=== PATIENT | female | born 1995 | race Caucasian/White ===

== ENCOUNTER 2018-07-21 09:19 | Inpatient (IN) ==
[2018-07-21] MEDS ORDERED: OXYTOCIN 30 UNITS/500 ML BAG IV PRN ×2 (10:10→23:33)
[2018-07-21] MEDS ORDERED: LACTATED RINGER'S 1,000 ML IV PRN (10:10)
[2018-07-21] MEDS ORDERED: LACTATED RINGER'S 1,000 ML IV SCH (10:15)
--- NOTE | 2018-07-21 10:20 | History & Physical Report ---
Date of Service July 21, 2018 Assessment & Plan (1) 40 weeks gestation of : 22yo @ 40 06/24 in spontaneous labor Discussed that her ctx have spaced somewhat since she left home to be evaluated , but due to cervical dilation of 5cm and change since her exam in office, will admit for labor. At this time, she would like to allow her labor to progress naturally, but is agreeable to using pitocin to augment contraction pattern if she does not make cervical cell changer the next few hours. Will plan to recheck cervix to reevaluate for this need. Does not think she would like an epidural at this time, but would like to keep her options open. Will let us know. History of Present Illness Chief Complaint: contractions Primary Care Provider: NO PCP 22yo @ 40 06/24 presents with regular ctx, every 3-4 minutes at home. These have worsened overnight. Last week, cervix exam was 150/-2 in office. No leaking fluid, no vaginal bleeding. + movement. uncomplicated. Review of Systems All systems reviewed & are unremarkable except as noted in HPI & below Physical Exam 2 Vital Signs (Past 24 Hours): Last Vital Signs Pulse 82 07/21/18 09:29 BP 123/72 07/21/18 09:29 Physical Exam: Gen: AAOx3 NAD CV: [id number] L: CTAB Abd: soft, gravid, NTTP Ext: no edema, no calf tenderness SVE: 5/90/-2, bulging membranes FHT Cat 1 [place] Q6 min
[2018-07-21 10:34] LABS: Hematocrit (blood only) 38.4 % (37-47); Hemoglobin 13.1 g/dL (12.0-16.0); Mean Corpuscular Volume 90.6 fL (80-100); Mean Platelet Volume 11.2 fL (7.4-10.4); Platelet Count 200 K/uL (130-400); RDW Coefficient of Variation 12.8 % (11.5-14.5); RDW Standard Deviation 41.8 fL (36.4-46.3); Red Blood Count 4.24 M/uL (4.2-5.4); White Blood Count 13.78 K/uL (4.8-10.8)
[2018-07-21 10:38] LABS: Mean Corpuscular Hgb Conc 34.1 g/dL (32-36)
--- NOTE | 2018-07-21 12:57 | Obstetrical Progress Note ---
Date of Service July 21, 2018 Subjective Ambulating in halls, contractions every 4 minutes. Increased pressure with ctx. FHT Cat 1, reactive. [place] Q6 SVE 6-7/100/-1 Patient desires to attempt to labor naturally, she has made change since last exam, will continue current plan. Does not desire epidural at this time. Physical Exam 2 Vital Signs (Past 24 Hours): Last Vital Signs Temp 36.8 C 07/21/18 10:11 Pulse 72 07/21/18 12:49 Resp 20 07/21/18 10:11 BP 122/76 07/21/18 12:49
--- NOTE | 2018-07-21 16:08 | Obstetrical Progress Note ---
Date of Service July 21, 2018 Subjective Feels continued ctx. FHT Cat 1 [place] Q 3-6 min. SVE 7-8/100/-1 bulging membranes Pt would like to shower and then continue ambulating. Does not desire epidural at this time. Physical Exam 2 Vital Signs (Past 24 Hours): Last Vital Signs Temp 36.8 C 07/21/18 12:49 Pulse 74 07/21/18 16:04 Resp 20 07/21/18 12:49 BP 128/74 07/21/18 16:04
--- NOTE | 2018-07-21 19:49 | Labor Progress Brief Note ---
Date of Service July 21, 2018 Subjective Patient tolerating contractions with breathing and movement techniques. Declines anesthesia. Requests AROM to speed remainder of labor. Assessment & Plan (1) 40 weeks gestation of : Patient care returned to Dr. Brewster via signout in patient room. Patient has returned to birthing ball after AROM per her preference / for comfort. RN and family remain in room providing support. Pt will notify caregivers of urge to push. Physical Exam 2 Vital Signs (Past 24 Hours): Last Vital Signs Temp 36.8 C 07/21/18 16:04 Pulse 90 07/21/18 19:04 Resp 20 07/21/18 16:04 BP 126/74 07/21/18 19:04 Physical Exam: FHT Cat 1 [place] Q2m Cvx 10/100/0 with bulging bag AROM for light meconium
--- NOTE | 2018-07-21 21:02 | Procedure Note ---
Vaginal Delivery Summary Date of Service July 21, 2018 Vaginal Delivery Summary Predelivery Diagnoses: 22yo @ 40 06/24, spontaneous labor Postdelivery diagnoses: same Procedure: spontaneous vaginal delivery, repair of 2nd degree perineal laceration EBL: 300ml Surgeon: Dr Brewster Complications: none Findings: Viable male , Apgars 9/9. Weight pending, please see nursery records. Description of delivery: Patient progressed to complete without anesthesia. She then began to push. She spontaneously vaginally delivered a viable male from the cephalic presentation. The head delivered in left occiput anterior position, nuchal cord x1 was noted and easily reduced. Anterior shoulder delivered, followed by posterior shoulder, followed by body. The baby was placed on mother's abdomen, a spontaneous cry was heard. Delayed cord clamping was employed, and the cord was doubly clamped and cut. Cord blood was obtained, and the placenta was delivered spontaneously intact with a three-vessel cord. The uterus and vagina were swept of all clots and debris. Pitocin was given, the uterus became firm. The cervix vagina and perineum were inspected, and a second-degree perineal laceration was noted. Anal sphincter was intact, however the laceration extended to the anal sphincter. The perineal laceration was infiltrated with lidocaine for anesthetic. One [id number] stitch of 3-0 chromic was used to reinforce the tissue surrounding anal sphincter. The remaining second-degree perineal laceration was repaired in standard fashion with 3-0 Vicryl. Excellent hemostasis was observed. Sponge, instrument, needle counts were correct x2 at the conclusion of the delivery. Mother and baby are recovering in stable and good condition in the room.
[2018-07-21] MEDS ORDERED: SUPERCREAM 0.870% 15 GM JAR EXT PRN (23:33)
[2018-07-21] MEDS ORDERED: HYDROCORTISONE ACETATE 25 MG SUPP PR PRN (23:33)
[2018-07-21] MEDS ORDERED: BISACODYL 10 MG SUPP PR PRN (23:33)
[2018-07-21] MEDS ORDERED: DIPHTHERIA/TETANUS/PERTUSSIS 0.5 ML SYR/VIAL IM ONE (23:33)
[2018-07-21] MEDS ORDERED: ACETAMINOPHEN 325 MG TAB PO PRN (23:33)
[2018-07-21] MEDS ORDERED: OXYCODONE/ACETAMINOPHEN 5mg/325mg TAB PO PRN (23:33)
[2018-07-21] MEDS ORDERED: BENZOCAINE 20% AER SPR 82.5 GM CAN EXT PRN (23:33)
[2018-07-21] MEDS ORDERED: IBUPROFEN 600 MG TAB PO ONE (23:49)
[2018-07-21] MEDS ORDERED: BENZOCAINE 20% AER SPR 82.5 GM CAN EXT ONE (23:49)
[2018-07-22] MEDS: DOCUSATE SODIUM 100 MG CAP PO SCH ×3 (00:39→21:28)
[2018-07-22 06:17] LABS: Hematocrit (blood only) 34.2 % (37-47); Hemoglobin 11.7 g/dL (12.0-16.0)
[2018-07-22] MEDS: IBUPROFEN 600 MG TAB PO PRN ×3 (06:22→17:24)
--- NOTE | 2018-07-22 06:22 | Obstetrical Progress Note ---
Date of Service <Satya Linares MD - Last Filed: 07/22/18 06:22> July 22, 2018 Assessment & Plan <Satya Linares MD - Last Filed: 07/22/18 06:22> (1) (normal spontaneous vaginal delivery): Deb is a 22yo who presented at 40+1 in labor now s/p PPD#1 - Feels well today. Eating well, voiding well, ambulating well. - Blood type O+ - , no difficulties with feeds - Pain well controlled with ibuprofen 600mg Q4H PRN. - Routine post- care - After discharge will have [address] Brewster. (2) 40 weeks gestation of : Subjective <Satya Linares MD - Last Filed: 07/22/18 06:22> Ambulation: ambulating normally Voiding: no voiding problems Passing Gas:: Yes Diet Tolerance:: regular diet Lochia:: Moderate Feeding Type:: breast feeding Current Pain Level(1-10): 4 (improved with motrin) Review of Systems Denies fever, chills, sweats Denies shortness of breath, difficulty breathing, chest pain, palpitations, chest pressure. Denies breast pain. Denies dysuria. Denies headache. Physical Exam <Satya Linares MD - Last Filed: 07/22/18 06:22> Vital Signs (Past 24 Hours) Last Vital Signs Temp 36.5 C 07/22/18 03:00 Pulse 91 H 07/22/18 03:00 Resp 16 07/22/18 03:00 BP 110/60 07/22/18 03:00 Pulse Ox 96 07/22/18 03:00 General: Alert, oriented. No acute distress. Cardiac: Regular rate and rhythm, no murmurs/rubs/gallops. Respiratory: Clear to auscultation anterior and posteriorly, no wheezes/rales/ rhonchi. No increased work of breathing. Symmetrical chest rise. No respiratory distress. Abdomen: Soft, nontender, nondistended. Bowel sounds present. Uterus: Uterine fundus firm, palpable 2-3cm below umbilicus. Lower Extremities: No lower extremity edema or swelling. No deep calf pain. Danial's negative bilaterally. <Bina Brewster DO - Last Filed: 07/22/18 06:55> Co-Signing Physician Notes I have seen/examined patient. I have read above note performed by resident and I agree with above. Any changes/additions are as follows: PPD#1 doing well. Continue routine care. Bina Brewster DO [facility] [place] [facility] Resident Activity Tracking <Satya Linares MD - Last Filed: 07/22/18 06:22> Resident Involvement: Resident Care Provided Care Provided: Adult [facility]
[2018-07-22] MEDS: PRENATAL VITAMIN 1 TAB PO SCH (08:36)
[2018-07-22] MEDS ORDERED: BISACODYL 5 MG TABEC PO SCH (20:00)
[2018-07-23] MEDS: IBUPROFEN 600 MG TAB PO PRN ×2 (05:36→10:08)
--- NOTE | 2018-07-23 06:27 | Obstetrical Progress Note ---
Date of Service <Satya Linares MD - Last Filed: 07/23/18 06:27> July 23, 2018 Assessment & Plan <Satya Linares MD - Last Filed: 07/23/18 06:27> (1) (normal spontaneous vaginal delivery): Deb is a 22yo who presented at 40+1 in labor now s/p PPD#2 - Feels well today. Eating well, voiding well, ambulating well. - Blood type O+ - , no difficulties with feeds - Pain well controlled with ibuprofen 600mg Q4H PRN. - Routine post- care - After discharge will have [address] Brewster. (2) 40 weeks gestation of : Subjective <Satya Linares MD - Last Filed: 07/23/18 06:27> Ambulation: ambulating normally Voiding: no voiding problems Passing Gas:: Yes Diet Tolerance:: regular diet Lochia:: Small Feeding Type:: breast feeding Current Pain Level(1-10): 0 (4/10 when feeding, improves with motrin) Review of Systems Denies fever, chills, sweats Denies shortness of breath, difficulty breathing, chest pain, palpitations, chest pressure. Denies breast pain. Denies dysuria. Denies headache. Physical Exam <Satya Linares MD - Last Filed: 07/23/18 06:27> Vital Signs (Past 24 Hours) Last Vital Signs Temp 36.9 C 07/22/18 23:35 Pulse 66 07/22/18 23:35 Resp 18 07/22/18 23:35 BP 117/68 07/22/18 23:35 Pulse Ox 98 07/22/18 23:35 General: Alert, oriented. No acute distress. Cardiac: Regular rate and rhythm, no murmurs/rubs/gallops. Respiratory: Clear to auscultation anterior and posteriorly, no wheezes/rales/ rhonchi. No increased work of breathing. Symmetrical chest rise. No respiratory distress. Abdomen: Soft, nontender, nondistended. Bowel sounds present. Uterus: Uterine fundus firm, palpable 3cm below umbilicus. Lower Extremities: No lower extremity edema or swelling. No deep calf pain. Danial's negative bilaterally. <Molly Richards MD, FACOG - Last Filed: 07/23/18 07:53> Co-Signing Physician Notes Resident Physician Supervision Note: I interviewed and examined the patient. Discussed with Dr. Linares and agree with findings and plan as documented in the note. Any exceptions or clarifications are listed here: [None] Documented By: Molly Richards MD, FACOG Resident Activity Tracking <Satya Linares MD - Last Filed: 07/23/18 06:27> Resident Involvement: Resident Care Provided Care Provided: Adult [facility] Medicine
[2018-07-23] MEDS: DOCUSATE SODIUM 100 MG CAP PO SCH (08:06)
[2018-07-23] MEDS: PRENATAL VITAMIN 1 TAB PO SCH (08:06)
== END 2018-07-23 11:30 | disposition home or self-care (01) | DRG 807 ==
LOC: OPB 09:19 → 4S1 09:21 → 4S2 23:38